=== PATIENT | male | born 1960 | race Caucasian/White ===

== ENCOUNTER 2018-07-04 11:50 | Emergency (ER) | payer OTHER ==
[~2018-07-04] VITALS: Ht 175.3 cm; Wt 72.0 kg
[~2018-07-04 11:50] MED LIST: HYDR-4011 PO; METH500T PO; NAPR-688 PO
[2018-07-04 11:58] VITALS: Ht 175.3 cm; Wt 72.0 kg
--- NOTE | 2018-07-04 12:01 | ERD ---
ER Documentation Chief Complaint Chief Complaint Mid Back pain HPI The patient is a 57-year-old male, presenting to the ER because of mid back pain intermittently for the last 2 days, worse with movement and deep breathing.. Denies similar symptoms previously, denies fever, chills, neck pain, chest pain, dyspnea, abdominal pain, vomiting, dysuria, diarrhea. He smokes and drinks socially Past medical history: Hypertension Past surgical history: Left knee arthroscopy ROS All systems reviewed and are negative except as per history of present illness. Medications Home Meds Active Scripts Hydrocodone/Acetaminophen (Russell 5-325 Tablet) 1 Each Tablet, 1 TAB PO Q6H PRN for PAIN, #7 TAB Prov:HE JACKSON MD 07/04/18 Ibuprofen* (Motrin*) 600 Mg Tab, 600 MG PO Q6H PRN for PAIN AND OR ELEVATED TEMP, #30 TAB Prov:HE JACKSON MD 07/04/18 Reported Medications Aspirin* (Aspirin* Chew) 81 Mg Tab.chew, 81 MG PO DAILY, TAB.CHEW 07/04/18 Lisinopril* (Lisinopril*) 40 Mg Tablet, 40 MG PO DAILY, #30 TAB 07/04/18 Discontinued Scripts Hydrocodone/Acetaminophen (Russell 5-325 Tablet) 1 Each Tablet, 1 EACH PO Q6, #14 TAB Prov:DAKOTADOMENIC DO 12/23/15 Naproxen* (Naproxen*) 500 Mg Tablet, 500 MG PO BID, #20 TAB Prov:GREENDOMENIC DO 12/23/15 Methocarbamol* (Robaxin*) 500 Mg Tab, 500 MG PO Q8, #24 TAB Prov:DAKOTADOMENIC DO 12/23/15 Allergies Allergies: Coded Allergies: No Known Allergies (Verified Allergy, Unknown, 07/04/18) PMhx/Soc History of Surgery: Yes (leg surgery) Hx Alcohol Use: Yes (1 pint per day) Hx Substance Use: Yes (marijuana daily) Hx Tobacco Use: Yes (cut down to 2 cigs per day) Physical Exam Vitals Vital Signs Date Temp Pulse Resp B/P (MAP) Pulse Ox O2 O2 Flow FiO2 Time Delivery Rate 07/04/18 54 18 121/83 96 Room Air 14:02 (96) 07/04/18 98.5 88 18 169/99 96 11:58 (122) Physical Exam Const: No acute distress. Head: Atraumatic. Eyes: Normal Conjunctiva. ENT: Normal External Ears, Nose and Mouth. Neck: Full range of motion. No meningismus. Resp: Clear to auscultation bilaterally. Cardio: Regular rate and rhythm. Abd: Soft, non distended, normal bowel sounds, non tender. Skin: No petechiae or rashes. Back: Right thoracic discomfort, no crepitus, no erythema Ext: No cyanosis, or edema. Neur: Awake and alert. No focal deficit Psych: Normal Mood and Affect. Result Diagram: 07/04/18 1232 07/04/18 1232 Results 24 hrs Laboratory Tests Test 07/04/18 12:32 White Blood Count 13.0 10^3/ul Red Blood Count 5.87 10^6/ul Hemoglobin 15.3 g/dl Hematocrit 46.9 % Mean Corpuscular Volume 79.9 fl Mean Corpuscular Hemoglobin 26.1 pg Mean Corpuscular Hemoglobin Concent 32.6 g/dl Red Cell Distribution Width 14.8 % Platelet Count 229 10^3/UL Mean Platelet Volume 10.9 fl Immature Granulocytes % 0.400 % Neutrophils % 73.8 % Lymphocytes % 15.2 % Monocytes % 9.7 % Eosinophils % 0.4 % Basophils % 0.5 % Nucleated Red Blood Cells % 0.0 /100WBC Immature Granulocytes # 0.050 10^3/ul Neutrophils # 9.6 10^3/ul Lymphocytes # 2.0 10^3/ul Monocytes # 1.3 10^3/ul Eosinophils # 0.1 10^3/ul Basophils # 0.1 10^3/ul Nucleated Red Blood Cells # 0.0 10^3/ul Prothrombin Time 13.3 Sec Prothrombin Time Ratio 1.0 INR International Normalized Ratio 1.00 Activated Partial Thromboplast Time 32.2 Sec Sodium Level 138 mmol/L Potassium Level 4.4 mmol/L Chloride Level 100 mmol/L Carbon Dioxide Level 23 mmol/L Anion Gap 15 Blood Urea Nitrogen 12 mg/dl Creatinine 0.60 mg/dl Est Glomerular Filtrat Rate mL/min > 60 mL/min Glucose Level 156 mg/dl Calcium Level 9.4 mg/dl Total Bilirubin 0.7 mg/dl Direct Bilirubin 0.00 mg/dl Indirect Bilirubin 0.7 mg/dl Aspartate Amino Transf (AST/SGOT) 118 IU/L Alanine Aminotransferase (ALT/SGPT) 55 IU/L Alkaline Phosphatase 101 IU/L Troponin I < 0.012 ng/ml B-Type Natriuretic Peptide 20 PG/ML Total Protein 8.8 g/dl Albumin 4.7 g/dl Globulin 4.10 g/dl Albumin/Globulin Ratio 1.14 Current Medications Medications Dose Sig/Alfredo Start Time Status Last (Trade) Ordered Route PRN Stop Time Admin Dose Reason Admin Morphine 4 mg ONCE STAT 07/04/18 DC 07/04/18 Sulfate IV 12:07/04/18 12:42 (morphine) 12:24 Ondansetron 4 mg ONCE STAT 07/04/18 DC 07/04/18 HCl (Zofran IV 12:07/04/18 12:42 Inj) 12:24 IV Flush 10 ml STK-MED 07/04/18 DC 07/04/18 (NS 10 ml) ONCE .ROUTE 13:17 07/04/18 14:28 13:18 Sodium 100 ml @ ud STK-MED 07/04/18 DC 07/04/18 Chloride ONCE .ROUTE 13:17 07/04/18 14:28 13:18 Iohexol 100 ml @ ud STK-MED 07/04/18 DC 07/04/18 ONCE .ROUTE 13:17 07/04/18 14:28 13:18 Procedures/[place] [id number] Radiology Main Line: [phone] DIAGNOSTIC IMAGING REPORT Patient: GERMAN MUNGUIA : 1960 Age: 57 Sex: M MR #: [id number] DOS: 07/04/18 1222 Ordering MD: HE JACKSON MD Location: E/R Room/Bed: PROCEDURE: XR chest. CLINICAL INDICATION: Shortness of breath TECHNIQUE: A single portable view of the chest was obtained. COMPARISON: 12/23/2015 FINDINGS: There is mild left basilar atelectasis. The right lung is clear. There is no pleural effusion or pneumothorax. The cardiac and mediastinal contours are within normal limits. The aorta is atherosclerotic and tortuous. IMPRESSION: 1. Mild left basilar atelectasis. RPTAT: AAEE Physician Shraddha Date Time Electronically viewed and signed by Donald Orona Physician on 07/04/2018 13:32 RF/ CC: HE JACKSON MD [id number] [place] [id number] Radiology Main Line: [phone] DIAGNOSTIC IMAGING REPORT Patient: GERMAN MUNGUIA : 1960 Age: 57 Sex: M MR #: [id number] DOS: 07/04/18 1222 Ordering MD: HE JACKSON MD Location: E/R Room/Bed: PROCEDURE: CTA Chest and pulmonary angiogram. CLINICAL INDICATION: Chest pain and shortness of breath. TECHNIQUE: CT scan of the chest and CT pulmonary angiogram was performed on a multidetector high-resolution CT scanner. High-resolution thin slice coronal and sagittal imaging was obtained from the axial source images. 3-D volumetric rendered post processing was performed. The patient was examined following the uncomplicated intravenous administration of wonder cc of Omnipaque-300 the. The images were reviewed on a PACS workstation. The total exam CTDI equals 46 mGy, and the total exam DLP equals 410 mGy-cm. One or more of the following dose reduction techniques were used: Automated exposure control. Adjustment of the mA and/or kV according to patient size. Use of iterative reconstruction technique. DICOM images are available. COMPARISON: CT 12/23/2015 FINDINGS: CT chest: The trachea is midline. Thyroid gland is unremarkable. Several shoddy axillary lymph nodes are noted. No significant mediastinal or hilar lymphadenopathy. The aorta is unremarkable. No aneurysmal dilatation or dissection. There are atherosclerotic calcifications. The pulmonary arterial trunk is normal size. No evidence of acute pulmonary emboli. Heart size is enlarged. No significant pericardial effusion. Mild bilateral central lobular emphysematous changes. No focal air space disease/consolidation. No evidence of pleural effusions. Bibasilar atelectasis. Airways are otherwise patent. The visualized upper abdominal organs appears to be within normal limits. The visualized osseous structures demonstrate mild degenerative changes. IMPRESSION: 1. No evidence of aortic aneurysm or dissection. 2. No evidence of acute pulmonary emboli. Cardiomegaly. 3. Bibasilar atelectasis. Mild bilateral central lobular emphysematous changes. No focal air space disease/consolidation. No pleural effusions. RPTAT: AAPP Physician Benedicto Date Time Electronically viewed and signed by Physician Benedicto on 07/04/2018 14:51 JL/ CC: HE JACKSON MD [id number] EKG: Read by emergency physician Rate/Rhythm: Sinus bradycardia 54 beats/min QRS, ST, T-waves: No ST elevation, no T inversion Impression: Abnormal EKG MEDICAL MAKING DECISION: The patient is a 57-year-old male, presenting with acute back pain of unclear etiology, most likely musculoskeletal. He was treated with morphine 4 mg IV for pain, Zofran formula IV for nausea with good response, is stable outpatient follow-up The differential diagnoses considered include but are not limited to caudal equina syndrome, spinal abscess, DJD, diskitis, lumbar radiculopathy. Departure Diagnosis: Primary Impression: Back pain Condition: Good Comments He was discharged with Motrin and 7 tablets of Russell 5 mg I discussed the findings with the patient. I advised the patient to follow-up with the primary physician in about 2-3 days, sooner if needed and return if any concern. Disclaimer: Inadvertent spelling and grammatical errors are likely due to EHR/di ctation software use and do not reflect on the overall quality of patient care. Also, please note that the electronic time recorded on this note does not necessarily reflect the actual time of the patient encounter. HE JACKSON MD Jul 04, 2018 12:01
[2018-07-04] MEDS ORDERED: morphine 4 MG/ML VIAL IV STA (12:22)
[2018-07-04] MEDS ORDERED: ONDANSETRON 4 MG INJ IV STA (12:22)
[2018-07-04] MEDS ORDERED: IOHEXOL 100 ML ONE (13:17)
[2018-07-04] MEDS ORDERED: SOD CHLORIDE 0.9% 100 ML ONE (13:17)
[2018-07-04] MEDS ORDERED: ASPI-903 PO (13:26)
[2018-07-04] MEDS ORDERED: LISI40TA3 PO (13:26)
[2018-07-04] MEDS ORDERED: IBUP-1542 PO (16:04)
[2018-07-04] MEDS ORDERED: HYDR-4011 PO (16:05)
[2018-07-04 16:50] VITALS: BP 132/92; PULSE 85; RESP 18
== END 2018-07-04 16:50 | disposition home or self-care (01) ==
LOC: E/R 11:50
DX: M54.9 Dorsalgia, unspecified (principal); I10 Essential (primary) hypertension; F17.210 Nicotine dependence, cigarettes, uncomplicated; R07.9 Chest pain, unspecified; Z79.82 Long term (current) use of aspirin
CPT/HCPCS: 36415; 71045; 71275; 80053; 83880; 84484; 85025; 85610; 85730; 93005; 96374; 96375; J2270; J2405; Q9967; Z7502; Z7610